=== PATIENT | female | born 1970 | race African-American/Black ===

== ENCOUNTER 2020-10-05 09:16 | Emergency (ER) | payer SELFPAY ==
[~2020-10-05] VITALS: Ht 165.1 cm; Wt 90.7 kg
[2020-10-05] MEDS ORDERED: IBUP-1953 PO (09:34)
--- NOTE | 2020-10-05 09:38 | NUR ---
Patient discharged to home in stable condition. Written and verbal after care instructions given. Patient verbalizes understanding of instructions. Stressed follow up or return to ER for worsening s/s.
== END 2020-10-05 09:39 | disposition home or self-care (01) ==
LOC: ER 09:16
DX: M25.562 Pain in left knee (principal)
CPT/HCPCS: A4663

== ENCOUNTER 2024-08-30 17:41 | Emergency (ER) | payer SELFPAY ==
[~2024-08-30] VITALS: Ht 160 cm; Wt 111.1 kg
[~2024-08-30 17:41] MED LIST: IBUP-1953 PO
[2024-08-30] MEDS ORDERED: HYDROMORPHONE 1 MG/1 ML DISP.SYRIN ONE (18:23)
[2024-08-30] MEDS ORDERED: ONDANSETRON 4 MG/2 ML VIAL ONE (18:23)
[2024-08-30 18:30] LABS: BASOPHILS # (AUTO) 0.1 K/UL (0.0-0.2); BASOPHILS % (AUTO) 0.6 % (0.0-2.0); EOSINOPHILS % (AUTO) 0.4 % (0.0-7.0); HEMATOCRIT 38.8 % (31.2-41.9); HEMOGLOBIN 12.8 g/dL (10.9-14.3); LYMPHOCYTES # (AUTO) 2.3 K/uL (0.8-4.8); LYMPHOCYTES % (AUTO) 25.2 % (20.5-51.5); MEAN CORPUSCULAR HEMOGLOBIN 31.7 uug (24.7-32.8); MEAN CORPUSCULAR HGB CONC 33 g/dL (32.3-35.6); MEAN CORPUSCULAR VOLUME 95.7 fL (75.5-95.3); MONOCYTES # (AUTO) 0.7 K/uL (0.1-1.30); MONOCYTES % (AUTO) 7.9 % (0.0-11.0); NEUTROPHILS % (AUTO) 65.9 % (38.5-71.5); PLATELET COUNT (AUTO) 338 K/uL (179-408); RED BLOOD CELL COUNT(AUTO) 4.05 MIL/uL (3.63-4.92); RED CELL DISTRIBUTION WIDTH 12.9 % (12.3-17.7); WHITE BLOOD COUNT (AUTO) 9.1 K/uL (3.8-11.8)
[2024-08-30 18:32] LABS: DIFFERENTIAL COMMENT 1
[2024-08-30] MEDS: HYDROMORPHONE 1 MG/1 ML DISP.SYRIN IV ONE (18:33)
[2024-08-30] MEDS: ONDANSETRON 4 MG/2 ML VIAL IV ONE (18:33)
[2024-08-30] MEDS: IV NORMAL SALINE 1000 ML BAG IV ONE (18:33)
[2024-08-30 18:35] LABS: *BILIRUBIN,URIN NEGATIVE (NEGATIVE); *BLOOD, URINE NEGATIVE (NEGATIVE); *CLARITY,URINE CLEAR (CLEAR); *COLOR,URINE YELLOW (YELLOW); *KETONES,URINE NEGATIVE (NEGATIVE); *PROTEIN,URINE NEGATIVE (NEGATIVE); *UROBILINOGEN,URINE 0.2 E.U./dl (NORMAL); LEUKOCYTE ESTERASE ,URINE NEGATIVE (NEGATIVE); NITRITE, URINE NEGATIVE (NEGATIVE); PH,URINE 8.5 (5.0-8.0); UGLUCOSE NEGATIVE (NEGATIVE)
[2024-08-30 18:43] LABS: ALBUMIN 3.7 g/dL (3.4-5.0); BILIRUBIN,DIRECT 0.2 mg/dL (0.0-0.2); BILIRUBIN,TOTAL 0.6 mg/dL (0.2-1.0); CALCIUM 8.9 mg/dL (8.5-10.1); CREATININE 0.7 mg/dL (0.6-1.3); POTASSIUM 3.5 mmol/L (3.5-5.1); TOTAL PROTEIN, SERUM 8.4 g/dL (6.4-8.2)
[2024-08-30] MEDS ORDERED: IV NORMAL SALINE 250 ML IV ONE (19:07)
[2024-08-30] MEDS ORDERED: SWABABLE VALVE TRANSFER SET EA MC ONE (19:07)
[2024-08-30] MEDS ORDERED: IOHEXOL 300MG/ML 100 ML INFUS..BTL ONE (19:07)
[2024-08-30] MEDS ORDERED: KETOROLAC TROMETHAMINE 15 MG INJ ONE (19:58)
[2024-08-30] MEDS ORDERED: METOCLOPRAMIDE HCL 10 MG/2 ML VIAL ONE (19:58)
[2024-08-30] MEDS: KETOROLAC TROMETHAMINE 15 MG INJ IVP ONE (20:04)
[2024-08-30] MEDS: METOCLOPRAMIDE HCL 10 MG/2 ML VIAL IV ONE (20:04)
[2024-08-30] MEDS ORDERED: METO-295 PO (20:38)
[2024-08-30] MEDS ORDERED: IBUP-1957 PO (20:38)
[2024-08-30 21:18] VITALS: BP 144/83; TEMP 98.3; O2SAT 98
== END 2024-08-30 21:18 | disposition home or self-care (01) ==
LOC: ER 17:41
DX: K82.8 Other specified diseases of gallbladder (principal); R10.10 Upper abdominal pain, unspecified; R10.2 Pelvic and perineal pain; R07.9 Chest pain, unspecified; Z79.1 Long term (current) use of non-steroidal anti-inflammatories (NSAID)
CPT/HCPCS: 36415; 71045; 83690; 85025; A4606; A4663; J1171; J1885; J2405; J2765; J7040; Q9967

== ENCOUNTER 2025-04-23 18:52 | Emergency (ER) | payer OTHER ==
[~2025-04-23] VITALS: Ht 160 cm; Wt 97.5 kg
[~2025-04-23 18:52] MED LIST changes: +IBUP-1957 PO; +METO-295 PO
[2025-04-23 19:05] VITALS: BP 156/93
[2025-04-23] MEDS ORDERED: ONDANSETRON ODT 4 MG TAB.RAPDIS ONE (23:22)
[2025-04-23] MEDS ORDERED: KETO10TA2 PO (23:22)
[2025-04-23] MEDS ORDERED: MORPHINE SULFATE 2 MG/1 ML DISP.SYRIN ONE (23:22)
[2025-04-23] MEDS: MORPHINE SULFATE 2 MG/1 ML DISP.SYRIN IM ONE (23:27)
[2025-04-23] MEDS: ONDANSETRON ODT 4 MG TAB.RAPDIS SL ONE (23:27)
[2025-04-24 00:04] VITALS: BP 136/85; TEMP 98.2; O2SAT 98
== END 2025-04-24 00:05 | disposition home or self-care (01) ==
LOC: ER 19:00
DX: S60.351A Superficial foreign body of right thumb, initial encounter (principal); X58.XXXA Exposure to other specified factors, initial encounter; Z79.1 Long term (current) use of non-steroidal anti-inflammatories (NSAID); Y93.89 Activity, other specified; Y92.89 Other specified places as the place of occurrence of the external cause; Y99.8 Other external cause status
CPT/HCPCS: 99284; 73130 ×2; 73630; J2270; A4606; A4663; Q0162

== ENCOUNTER 2025-05-16 06:09 | Emergency (ER) | payer OTHER ==
[~2025-05-16] VITALS: Ht 160 cm; Wt 99.8 kg
[~2025-05-16 06:09] MED LIST changes: +KETO10TA2 PO
[2025-05-16] MEDS ORDERED: MORPHINE SULFATE 4 MG/1 ML DISP.SYRIN ONE (07:06)
[2025-05-16] MEDS ORDERED: METOCLOPRAMIDE HCL 10 MG/2 ML VIAL ONE (07:06)
[2025-05-16] MEDS: MORPHINE SULFATE 4 MG/1 ML DISP.SYRIN IV ONE (07:13)
[2025-05-16] MEDS: IV NORMAL SALINE 1000 ML BAG IV ONE (07:13)
[2025-05-16] MEDS: METOCLOPRAMIDE HCL 10 MG/2 ML VIAL IV ONE (07:13)
[2025-05-16 07:16] LABS: PLATELET COUNT (AUTO) 342 K/uL (179-408); RED BLOOD CELL COUNT(AUTO) 4.10 MIL/uL (3.63-4.92); RED CELL DISTRIBUTION WIDTH 13.4 % (12.3-17.7); WHITE BLOOD COUNT (AUTO) 8.7 K/uL (3.8-11.8)
[2025-05-16 07:18] LABS: CREATININE 0.7 mg/dL (0.6-1.3); SODIUM SERUM 145.0 mmol/L (136-145); UREA NITROGEN, BLOOD 10.0 mg/dL (7-18)
[2025-05-16 07:29] LABS: ASPARTATE AMINOTRANSFERASE 27.0 U/L (15-37); TOTAL PROTEIN, SERUM 8.4 g/dL (6.4-8.2)
[2025-05-16 07:45] VITALS: BP 143/84
[2025-05-16 08:27] LABS: *BILIRUBIN,URIN NEGATIVE (NEGATIVE); *BLOOD, URINE NEGATIVE (NEGATIVE); *COLOR,URINE YELLOW (YELLOW); *KETONES,URINE NEGATIVE (NEGATIVE); *PROTEIN,URINE NEGATIVE (NEGATIVE); *UROBILINOGEN,URINE 1.0 E.U./dl (NORMAL); LEUKOCYTE ESTERASE ,URINE TRACE (NEGATIVE); NITRITE, URINE NEGATIVE (NEGATIVE); UGLUCOSE NEGATIVE (NEGATIVE)
[2025-05-16 08:28] LABS: *CLARITY,URINE SLIGHTLY HAZY (CLEAR)
[2025-05-16 08:29] LABS: *URINE HCG, QUAL NEGATIVE (NEGATIVE); SQUAMOUS EPITHELIAL CELL,UR FEW /HPF (NONE SEEN)
[2025-05-16] MEDS ORDERED: NITROFURANTOIN/NITROFURAN MAC 100 MG CAPSULE PO ONE (08:44)
[2025-05-16] MEDS ORDERED: PANTOPRAZOLE SODIUM 40 MG TABLET.DR PO ONE (08:44)
[2025-05-16] MEDS ORDERED: PANT40TA49 PO (08:46)
[2025-05-16] MEDS ORDERED: NITR100C11 PO (08:46)
[2025-05-16] MEDS: NITROFURANTOIN/NITROFURAN MAC 100 MG CAPSULE PO ONE (08:49)
[2025-05-16] MEDS: PANTOPRAZOLE SODIUM 40 MG TABLET.DR PO ONE (08:49)
[2025-05-16 09:14] VITALS: BP 143/84; O2SAT 98
== END 2025-05-16 09:14 | disposition home or self-care (01) ==
LOC: ER 06:09
DX: K29.00 Acute gastritis without bleeding (principal); N39.0 Urinary tract infection, site not specified; K76.0 Fatty (change of) liver, not elsewhere classified; Z79.1 Long term (current) use of non-steroidal anti-inflammatories (NSAID)
CPT/HCPCS: 99285; 96374; 76705; 96361; 96375; 80076; 80048; 81001; 84703; 83690; 85025; 87086; 36415; 93005; J2765; J2270; J7040; A4606; A4663